=== PATIENT | male | born 1965 | race Caucasian/White ===

== ENCOUNTER 2021-01-12 12:05 | Inpatient (IN) | payer SELFPAY ==
[~2021-01-12 12:05] MED LIST: Iopamidol-370 76% 500 ML 1 ML ONE
[2021-01-12] MEDS ORDERED: Ondansetron PF 4 MG/2 ML Vial ONE (12:22)
[2021-01-12] MEDS ORDERED: Morphine 4 MG/ML VIAL ONE ×2 (12:22→13:34)
[2021-01-12 12:45] LABS: #Eosinphils 0.2 thou/uL (0.0-0.7); #Monocytes 1.1 thou/uL (0.11-0.59); %Basophils 0.2 % (0.0-1.0); %Eosinophils 1.5 % (0.0-10.0); %Monocytes 7.1 % (0.0-10.0); %Neutrophils 78.3 % (42.0-75.0); Hemoglobin 15.9 g/dL (14.0-18.0); Mean Corpuscular HGB CONC 34.6 g/dL (32.0-36.0); Mean Corpuscular Hemoglobin 32.4 pg (27.0-31.0); Mean Corpuscular Volume 93.6 fL (78.0-98.0); Mean Platelet Volume 6.8 fL (7.4-10.4); Platelet Count 197 thou/uL (130-400); RBC Distribution Width 12.8 % (11.5-14.5); White Blood Cell (WBC) Count 15.4 thou/uL (4.8-10.8)
[2021-01-12 13:07] LABS: ALT (SGPT) 78 U/L (8-55); AST (SGOT) 38 U/L (5-34); Albumin 3.3 g/dL (3.5-5.0); Alkaline Phosphatase 80 U/L (40-110); Anion Gap 13 mmol/L (10-20); BUN (Urea Nitrogen) 14 mg/dL (8.4-25.7); Bilirubin, Total 1.3 mg/dL (0.2-1.2); Calc. Creatinine Clearance 0 mL/min (70-130); Calcium 8.3 mg/dL (7.8-10.44); Carbon Dioxide 25 mmol/L (22-29); Chloride 94 mmol/L (98-107); Globulin 2.6 g/dL (2.4-3.5); Glucose 191 mg/dL (70-105); Lipase 307 U/L (8-78); Potassium 3.4 mmol/L (3.5-5.1); Protein, Total 5.9 g/dL (6.0-8.3); Sodium 129 mmol/L (136-145)
[2021-01-12 15:02] LABS: Bilirubin Negative (Negative); Blood, Urine Negative (Negative); Clarity Clear (Clear); Glucose, Urine (Dipstick) Normal (Negative); Ketone, Urine Negative (Negative); Leukocyte Negative Leu/uL (Negative); Nitrite Negative (Negative); Protein, Urine (Dipstick) Negative (Neg-Trace); Specific Gravity, Urine 1.039 (1.002-1.036); Urobilinogen Normal mg/dL (Less than 2)
[2021-01-12] MEDS ORDERED: Ketorolac Tromethamine 30 MG/ML VIAL IVP SCH (15:45)
[2021-01-12] MEDS ORDERED: Fentanyl 100 MCG/2 ML VIAL SLOW IVP SCH ×2 (15:45→18:15)
[2021-01-12] MEDS ORDERED: Fentanyl 100 MCG/2 ML VIAL SLOW IVP PRN (15:45)
[2021-01-12] MEDS ORDERED: Ondansetron PF 4 MG/2 ML Vial IVP PRN ×2 (15:46→22:06)
[2021-01-12] MEDS ORDERED: NS 0.9% w/ 20 MEQ KCL 1,000 ML/1,000 ML BAG IV SCH (16:00)
[2021-01-12] MEDS ORDERED: hydrALAZINE 20 MG/ML VIAL SLOW IVP PRN (16:05)
[2021-01-12] MEDS ORDERED: Ketorolac Tromethamine 30 MG/ML VIAL ONE (16:12)
[2021-01-12] MEDS ORDERED: Fentanyl 100 MCG/2 ML VIAL ONE (16:12)
[2021-01-12 16:57] VITALS: BMI 39.5
[2021-01-12] MEDS: NS 0.9% w/ 20 MEQ KCL 1,000 ML/1,000 ML BAG IV SCH ×2 (18:13→23:25)
[2021-01-12] MEDS: Thiamine HCl 200 MG/2 ML VIAL SLOW IVP SCH (18:14)
[2021-01-12] MEDS: Mometasone 200 MCG/Formoterol 5 MCG 120 PUFF INHALER INH SCH (18:42)
[2021-01-12] MEDS: Ketorolac Tromethamine 30 MG/ML VIAL IVP PRN (20:56)
[2021-01-12] MEDS ORDERED: Morphine 2 MG/ML VIAL SLOW IVP PRN (21:02)
[2021-01-12] MEDS ORDERED: HYDROmorphone 10 mg/100 ml CADD IVPB PRN (22:06)
[2021-01-12] MEDS ORDERED: diphenhydrAMINE 25 MG CAP PO PRN (22:06)
[2021-01-12] MEDS ORDERED: Naloxone HCl 0.4 mg/ml Vial IV PRN (22:06)
[2021-01-12] MEDS ORDERED: diphenhydrAMINE 50 MG/ML VIAL IM PRN (22:06)
[2021-01-12] MEDS ORDERED: Promethazine HCl 25 MG/ML VIAL IM PRN (22:06)
[2021-01-12] MEDS ORDERED: Communication Order-Pharmacy FS SCH (22:15)
[2021-01-12 23:34] LABS: SARS-CoV-2 PCR by NAA DETECTED (NotDetected)
[2021-01-13] MEDS: Ketorolac Tromethamine 30 MG/ML VIAL IVP PRN ×4 (01:55→22:44)
[2021-01-13] MEDS: NS 0.9% w/ 20 MEQ KCL 1,000 ML/1,000 ML BAG IV SCH ×5 (05:20→22:45)
[2021-01-13] MEDS: Mometasone 200 MCG/Formoterol 5 MCG 120 PUFF INHALER INH SCH ×2 (05:56→19:00)
[2021-01-13 06:34] LABS: ALT (SGPT) 53 U/L (8-55); AST (SGOT) 24 U/L (5-34); Albumin 3.1 g/dL (3.5-5.0); Alkaline Phosphatase 71 U/L (40-110); Anion Gap 10 mmol/L (10-20); BUN (Urea Nitrogen) 8 mg/dL (8.4-25.7); Calc. Creatinine Clearance 158 mL/min (70-130); Calcium 8.2 mg/dL (7.8-10.44); Carbon Dioxide 28 mmol/L (22-29); Chloride 97 mmol/L (98-107); Globulin 2.8 g/dL (2.4-3.5); Glucose 179 mg/dL (70-105); Lipase 606 U/L (8-78); Potassium 3.9 mmol/L (3.5-5.1); Protein, Total 5.9 g/dL (6.0-8.3); Sodium 131 mmol/L (136-145)
[2021-01-13 06:47] LABS: Hemoglobin 16.5 g/dL (14.0-18.0); Mean Corpuscular HGB CONC 34.3 g/dL (32.0-36.0); Mean Corpuscular Hemoglobin 32.6 pg (27.0-31.0); Mean Platelet Volume 6.8 fL (7.4-10.4); Platelet Count 155 thou/uL (130-400); RBC Distribution Width 13.1 % (11.5-14.5); Red Blood Cell (RBC) Count 5.08 mill/uL (4.70-6.10); White Blood Cell (WBC) Count 19.2 thou/uL (4.8-10.8)
[2021-01-13 06:48] LABS: Band 17 % (5-11); Eosinophils 1 % (0-10); Lymphocytes 2 % (21-51); MDiff Complete? YES; Metamyelocyte 1 % (0-0); Monocytes 5 % (0-10); Neutrophil 74 % (42-75); Nucleated RBC 1 % (0); Platelet Morphology Comment Appears Adequate; RBC Morphology Normal
[2021-01-13] MEDS: Lisinopril 20 MG TAB PO SCH (08:31)
[2021-01-13] MEDS ORDERED: Acetaminophen 325 MG TAB PO PRN (09:46)
[2021-01-13] MEDS ORDERED: Dextrose 5% in Water 1,000 ML IV PRN (09:47)
[2021-01-13] MEDS ORDERED: Dextrose 50% Abboject 50 ML SYRINGE SLOW IVP PRN (09:47)
[2021-01-13] MEDS ORDERED: HYDROmorphone 10 mg/100 ml CADD IVPB PRN (09:53)
[2021-01-13] MEDS ORDERED: Sodium Chloride 0.9% 1,000 ML IV SCH (13:30)
[2021-01-13 18:25] LABS: Hemoglobin 14.6 g/dL (14.0-18.0)
[2021-01-13] MEDS: Thiamine HCl 200 MG/2 ML VIAL SLOW IVP SCH (18:30)
[2021-01-13] MEDS ORDERED: Mometasone 100 MCG/Formoterol 5 MCG 120 PUFF INHALER INH SCH (18:30)
[2021-01-13] MEDS ORDERED: SALMETEROL INH SCH (21:00)
[2021-01-13] MEDS ORDERED: FLUTICASONE INH SCH (21:00)
[2021-01-13] MEDS ORDERED: [UNRECOGNIZED DRUG - OTHER] INH SCH (21:00)
[2021-01-13] MEDS: diphenhydrAMINE 50 MG/ML VIAL IVP PRN (21:22)
[2021-01-13] MEDS: HYDROmorphone 10 mg/100 ml CADD IVPB PRN (21:29)
[2021-01-14] MEDS: Ketorolac Tromethamine 30 MG/ML VIAL IVP PRN ×4 (04:09→22:32)
[2021-01-14] MEDS: NS 0.9% w/ 20 MEQ KCL 1,000 ML/1,000 ML BAG IV SCH ×2 (04:10→15:06)
[2021-01-14] MEDS: diphenhydrAMINE 50 MG/ML VIAL IVP PRN ×2 (04:21→22:32)
[2021-01-14 05:26] LABS: Hemoglobin 12.8 g/dL (14.0-18.0); MDiff Complete? YES; Mean Corpuscular HGB CONC 33.2 g/dL (32.0-36.0); Mean Corpuscular Volume 96.2 fL (78.0-98.0); Mean Platelet Volume 7.2 fL (7.4-10.4); Platelet Count 116 thou/uL (130-400); RBC Distribution Width 12.9 % (11.5-14.5); Red Blood Cell (RBC) Count 3.99 mill/uL (4.70-6.10); White Blood Cell (WBC) Count 18.1 thou/uL (4.8-10.8)
[2021-01-14 05:27] LABS: Band 12 % (5-11); Lymphocytes 7 % (21-51); Monocytes 4 % (0-10); Neutrophil 77 % (42-75); Platelet Morphology Comment Appears Decreased
[2021-01-14 05:33] LABS: ALT (SGPT) 31 U/L (8-55); AST (SGOT) 23 U/L (5-34); Albumin 2.6 g/dL (3.5-5.0); Alkaline Phosphatase 61 U/L (40-110); Anion Gap 10 mmol/L (10-20); BUN (Urea Nitrogen) 10 mg/dL (8.4-25.7); Bilirubin, Total 1.1 mg/dL (0.2-1.2); Calc. Creatinine Clearance 156 mL/min (70-130); Carbon Dioxide 22 mmol/L (22-29); Chloride 102 mmol/L (98-107); Globulin 2.5 g/dL (2.4-3.5); Glucose 157 mg/dL (70-105); Lipase 135 U/L (8-78); Potassium 4.8 mmol/L (3.5-5.1); Protein, Total 5.1 g/dL (6.0-8.3); Sodium 129 mmol/L (136-145)
[2021-01-14] MEDS: Mometasone 200 MCG/Formoterol 5 MCG 120 PUFF INHALER INH SCH ×2 (06:09→17:33)
[2021-01-14 08:45] LABS: Bilirubin Negative (Negative); Blood, Urine 2+ (Negative); Clarity Clear (Clear); Glucose, Urine (Dipstick) 30 mg/dL (Negative); Ketone, Urine 10 mg/dL (Negative); Leukocyte Negative Leu/uL (Negative); Nitrite Negative (Negative); Protein, Urine (Dipstick) 100 mg/dL (Neg-Trace); RBC/HPF 0-3 HPF (0-3); Specific Gravity, Urine 1.025 (1.002-1.036); Squamous Epithelial None Seen HPF (0-3); Urobilinogen Normal mg/dL (Less than 2)
[2021-01-14 08:47] LABS: Bacteria/HPF Rare-Few HPF (None Seen)
[2021-01-14] MEDS: Amlodipine 10 MG TAB PO SCH (09:36)
[2021-01-14] MEDS: Lisinopril 20 MG TAB PO SCH (09:37)
[2021-01-14] MEDS ORDERED: NS 0.9% w/ 20 MEQ KCL 1,000 ML/1,000 ML BAG IV SCH (11:24)
[2021-01-14] MEDS ORDERED: Sodium Chloride 0.9% 1,000 ML IV SCH (12:00)
[2021-01-14] MEDS: Enoxaparin Sodium 40 MG/0.4 ML SYRINGE SC SCH (12:24)
[2021-01-14] MEDS: Lactated Ringer's 1,000 ML IV SCH ×3 (12:40→20:46)
[2021-01-14] MEDS: Thiamine HCl 200 MG/2 ML VIAL SLOW IVP SCH (16:08)
[2021-01-14] MEDS: HYDROmorphone 10 mg/100 ml CADD IVPB PRN (20:44)
[2021-01-15] MEDS: Lactated Ringer's 1,000 ML IV SCH ×6 (00:15→19:40)
[2021-01-15] MEDS: Mometasone 200 MCG/Formoterol 5 MCG 120 PUFF INHALER INH SCH ×2 (05:57→19:14)
[2021-01-15] MEDS: Ketorolac Tromethamine 30 MG/ML VIAL IVP PRN ×3 (08:41→21:03)
[2021-01-15] MEDS: Enoxaparin Sodium 40 MG/0.4 ML SYRINGE SC SCH (08:42)
[2021-01-15] MEDS: Amlodipine 10 MG TAB PO SCH (08:42)
[2021-01-15] MEDS: Labetalol 100 MG TAB PO SCH (08:42)
[2021-01-15 09:21] LABS: #Eosinphils 0.2 thou/uL (0.0-0.7); #Lymphocytes 1.2 thou/uL (1.20-3.40); #Monocytes 1.2 thou/uL (0.11-0.59); #Neutrophils 12.4 thou/uL (1.40-6.50); %Basophils 0.1 % (0.0-1.0); %Eosinophils 1.6 % (0.0-10.0); %Lymphocytes 7.9 % (21.0-51.0); %Monocytes 7.7 % (0.0-10.0); %Neutrophils 82.7 % (42.0-75.0); Hemoglobin 12.7 g/dL (14.0-18.0); Mean Corpuscular HGB CONC 33.2 g/dL (32.0-36.0); Mean Corpuscular Hemoglobin 32.3 pg (27.0-31.0); Mean Corpuscular Volume 97.3 fL (78.0-98.0); Mean Platelet Volume 7.3 fL (7.4-10.4); Platelet Count 123 thou/uL (130-400); RBC Distribution Width 12.9 % (11.5-14.5); Red Blood Cell (RBC) Count 3.93 mill/uL (4.70-6.10)
[2021-01-15 09:41] LABS: Anion Gap 13 mmol/L (10-20); BUN (Urea Nitrogen) 7 mg/dL (8.4-25.7); Calc. Creatinine Clearance 178 mL/min (70-130); Calcium 8.7 mg/dL (7.8-10.44); Carbon Dioxide 22 mmol/L (22-29); Chloride 101 mmol/L (98-107); Glucose 135 mg/dL (70-105); Lipase 47 U/L (8-78); Potassium 3.9 mmol/L (3.5-5.1); Sodium 132 mmol/L (136-145)
[2021-01-15] MEDS: Thiamine HCl 200 MG/2 ML VIAL SLOW IVP SCH (15:57)
[2021-01-15] MEDS: HYDROmorphone 10 mg/100 ml CADD IVPB PRN (17:52)
[2021-01-15] MEDS: Zolpidem Tartrate 5 MG TAB PO PRN (21:03)
[2021-01-16] MEDS: Melatonin 3 MG TAB PO PRN (00:39)
[2021-01-16] MEDS: Lactated Ringer's 1,000 ML IV SCH ×2 (02:39→16:34)
[2021-01-16] MEDS: HumaLOG 300 UNITS/3 ML VIAL SC PRN ×2 (05:53→11:11)
[2021-01-16 06:29] LABS: #Eosinphils 0.2 thou/uL (0.0-0.7); #Lymphocytes 1.2 thou/uL (1.20-3.40); %Basophils 0.3 % (0.0-1.0); %Eosinophils 1.6 % (0.0-10.0); %Lymphocytes 10.5 % (21.0-51.0); %Monocytes 8.7 % (0.0-10.0); %Neutrophils 78.9 % (42.0-75.0); Hemoglobin 11.8 g/dL (14.0-18.0); Mean Corpuscular HGB CONC 34.6 g/dL (32.0-36.0); Mean Corpuscular Hemoglobin 33.6 pg (27.0-31.0); Mean Corpuscular Volume 97.2 fL (78.0-98.0); Mean Platelet Volume 7.4 fL (7.4-10.4); Platelet Count 135 thou/uL (130-400); RBC Distribution Width 12.7 % (11.5-14.5); Red Blood Cell (RBC) Count 3.51 mill/uL (4.70-6.10); White Blood Cell (WBC) Count 11.4 thou/uL (4.8-10.8)
[2021-01-16] MEDS: Enoxaparin Sodium 40 MG/0.4 ML SYRINGE SC SCH (09:20)
[2021-01-16] MEDS: Multivitamin W/ Minerals 1 TAB PO SCH (09:20)
[2021-01-16] MEDS: Amlodipine 10 MG TAB PO SCH (09:20)
[2021-01-16] MEDS: Folic Acid 1 MG TAB PO SCH (09:20)
[2021-01-16] MEDS: Mometasone 200 MCG/Formoterol 5 MCG 120 PUFF INHALER INH SCH ×2 (09:21→18:09)
[2021-01-16] MEDS: Labetalol 100 MG TAB PO SCH (09:23)
[2021-01-16] MEDS ORDERED: Furosemide 20 MG/2 ML VIAL SLOW IVP SCH (10:00)
[2021-01-16] MEDS ORDERED: Thiamine 100 MG TAB PO SCH (11:45)
[2021-01-16] MEDS ORDERED: Lactated Ringer's 1,000 ML IV SCH (18:00)
[2021-01-16] MEDS: Ketorolac Tromethamine 30 MG/ML VIAL IVP PRN (19:54)
[2021-01-16] MEDS: Zolpidem Tartrate 5 MG TAB PO PRN (19:54)
[2021-01-17 06:17] LABS: #Eosinphils 0.1 thou/uL (0.0-0.7); #Lymphocytes 1.4 thou/uL (1.20-3.40); #Monocytes 1.1 thou/uL (0.11-0.59); #Neutrophils 7.5 thou/uL (1.40-6.50); %Basophils 0.2 % (0.0-1.0); %Eosinophils 1.3 % (0.0-10.0); %Lymphocytes 14.1 % (21.0-51.0); %Monocytes 10.6 % (0.0-10.0); %Neutrophils 73.8 % (42.0-75.0); Hemoglobin 12.3 g/dL (14.0-18.0); Mean Corpuscular HGB CONC 33.9 g/dL (32.0-36.0); Mean Corpuscular Hemoglobin 32.6 pg (27.0-31.0); Mean Corpuscular Volume 96.2 fL (78.0-98.0); Mean Platelet Volume 7.3 fL (7.4-10.4); Platelet Count 160 thou/uL (130-400); RBC Distribution Width 12.8 % (11.5-14.5); Red Blood Cell (RBC) Count 3.77 mill/uL (4.70-6.10); White Blood Cell (WBC) Count 10.1 thou/uL (4.8-10.8)
[2021-01-17] MEDS: Multivitamin W/ Minerals 1 TAB PO SCH (09:19)
[2021-01-17] MEDS: Folic Acid 1 MG TAB PO SCH (09:19)
[2021-01-17] MEDS: Amlodipine 10 MG TAB PO SCH (09:19)
[2021-01-17] MEDS: Thiamine 100 MG TAB PO SCH (09:19)
[2021-01-17] MEDS: Enoxaparin Sodium 40 MG/0.4 ML SYRINGE SC SCH (09:20)
[2021-01-17] MEDS: Labetalol 100 MG TAB PO SCH (09:20)
[2021-01-17] MEDS: Mometasone 200 MCG/Formoterol 5 MCG 120 PUFF INHALER INH SCH ×2 (10:45→18:19)
[2021-01-17] MEDS: Ketorolac Tromethamine 30 MG/ML VIAL IVP PRN ×2 (15:04→21:01)
[2021-01-17] MEDS: Zolpidem Tartrate 5 MG TAB PO PRN (21:01)
[2021-01-17] MEDS: Melatonin 3 MG TAB PO PRN (21:01)
[2021-01-18] MEDS: Mometasone 200 MCG/Formoterol 5 MCG 120 PUFF INHALER INH SCH ×2 (06:02→18:06)
[2021-01-18] MEDS: Pancrelipase DR 12,000 1 CAP PO SCH ×3 (08:53→17:03)
[2021-01-18] MEDS: Multivitamin W/ Minerals 1 TAB PO SCH (08:53)
[2021-01-18] MEDS: Thiamine 100 MG TAB PO SCH (08:53)
[2021-01-18] MEDS: Folic Acid 1 MG TAB PO SCH (08:53)
[2021-01-18] MEDS: Amlodipine 10 MG TAB PO SCH (08:53)
[2021-01-18] MEDS: Enoxaparin Sodium 40 MG/0.4 ML SYRINGE SC SCH (08:54)
[2021-01-18] MEDS: Pantoprazole 40 MG VIAL IVP SCH (08:55)
[2021-01-18] MEDS: Labetalol 100 MG TAB PO SCH (08:57)
[2021-01-18] MEDS ORDERED: ALPRAZolam 0.5 MG TAB PO SCH (12:15)
[2021-01-18] MEDS: HumaLOG 300 UNITS/3 ML VIAL SC PRN (17:03)
[2021-01-18] MEDS ORDERED: Zolpidem Tartrate 5 MG TAB PO PRN (21:12)
[2021-01-18] MEDS: Melatonin 3 MG TAB PO PRN (22:07)
[2021-01-19] MEDS: Mometasone 200 MCG/Formoterol 5 MCG 120 PUFF INHALER INH SCH (05:41)
[2021-01-19] MEDS: HumaLOG 300 UNITS/3 ML VIAL SC PRN (05:41)
[2021-01-19] MEDS: Labetalol 100 MG TAB PO SCH (09:31)
[2021-01-19] MEDS: Pancrelipase DR 12,000 1 CAP PO SCH (09:31)
[2021-01-19] MEDS: Amlodipine 10 MG TAB PO SCH (09:31)
[2021-01-19] MEDS: Pantoprazole 40 MG VIAL IVP SCH (09:31)
[2021-01-19] MEDS: Folic Acid 1 MG TAB PO SCH (09:32)
[2021-01-19] MEDS: Enoxaparin Sodium 40 MG/0.4 ML SYRINGE SC SCH (09:32)
[2021-01-19] MEDS: Multivitamin W/ Minerals 1 TAB PO SCH (09:32)
[2021-01-19] MEDS: Thiamine 100 MG TAB PO SCH (09:32)
[2021-01-19 11:48] VITALS: BP 122/77; TEMP 98.6
== END 2021-01-19 13:44 | disposition home or self-care (01) | DRG 438 ==
LOC: ERS 12:05 → ERHOLD 15:20 → SURG A 16:38 → T4-B 01-13 01:32
PROVIDERS: ADMIT Internal Medicine; ATTEND Internal Medicine
PROC: 8E0ZXY6 Isolation (ICD-10-PCS; principal; 2021-01-13)
DX: K85.20 Alcohol induced acute pancreatitis without necrosis or infection (principal); U07.1 COVID-19; E87.1 Hypo-osmolality and hyponatremia; K86.2 Cyst of pancreas; K86.0 Alcohol-induced chronic pancreatitis; I10 Essential (primary) hypertension; E87.6 Hypokalemia; F10.10 Alcohol abuse, uncomplicated; J45.20 Mild intermittent asthma, uncomplicated; R33.9 Retention of urine, unspecified; Z79.899 Other long term (current) drug therapy
CPT/HCPCS: 36415; 36416; 71045; 74177; 76705; 76770; 80048; 80053; 81001; 81003; 83036; 83605; 83690; 84478; 84484; 85025; 87324; 87449; 93005; 94760; 96374; 96375; 96376; C9113; J0360; J1200; J1650; J1815; J1885; J1940; J2270; J2405; J2550; J3010; J3411; J3480; J7050; J7120; Q9967; U0003; U0005